=== PATIENT | female | born 1960 | race Caucasian/White ===

== ENCOUNTER → 2020-06-19 10:19 | Outpatient (BNVA) | payer OTHER, SELFPAY | PROVIDERS: Visit Provider Nurse Practitioner Family | DX: M54.9 Dorsalgia, unspecified (principal) | CPT/HCPCS: 81000 ==

== ENCOUNTER 2020-12-05 18:14 | Emergency (ER) | payer OTHER, SELFPAY ==
[2020-12-05 19:27] VITALS: BP 114/73; PULSE 76; RESP 16; TEMP 37.4; O2SAT 98; BMI 24.0
--- NOTE | 2020-12-05 19:54 | XRR_ITS ---
PROCEDURE INFORMATION: Exam: XR Chest Exam date and time: 12/05/2020 7:54 PM Age: 60 years old Clinical indication: Patient HX: Coughing 5 days; Additional info: SOB, covid + TECHNIQUE: Imaging protocol: XR of the chest. Views: 1 view. COMPARISON: No relevant prior studies available. FINDINGS: Lungs: Unremarkable. No consolidation. Pleural spaces: Unremarkable. No pleural effusion. No pneumothorax. Heart/Mediastinum: Unremarkable. No cardiomegaly. Bones/joints: Unremarkable. XR/XR chest 1V portable [id number] IMPRESSION: No acute findings.
[2020-12-05 22:43] VITALS: BP 117/87; PULSE 80; RESP 18; O2SAT 99
--- NOTE | 2020-12-05 22:46 | ED_ITS ---
HPI - SOB/Dyspnea General: Chief Complaint: Shortness of Breath/Dyspnea Stated Complaint: covid +/difficulty breathing Time Seen by Provider: 12/05/20 22:45 History of Present Illness: HPI Narrative: 60-year-old female comes in today for complaints of shortness of breath today. Patient does report some improvement in breathing since coming into the air conditioning of the hospital. Patient reports not having air conditioner at home. Patient does have a h istory of reactive airway. Patient also tested positive for COVID-19 within the last 2 days. Patient appears well. Patient appears no acute distress. Review of Systems General: Reports: 10 or more systems reviewed and unremarkable except in HPI and below Resp: Reports: dyspnea [facility] ED PFSH: Social History (Updated 06/19/20 @ 10:16 by Antoinette Griffin LPN) Smoking and tobacco status: never smoked Physical Exam Const: COMMON NORMALS: no acute distress and patient oriented x3 GENERAL APPEARANCE: cooperative HENMT: COMMON NORMALS: normocephalic, TM's normal bilaterally and Normal external nose present HEAD & SCALP: normal to inspection and normocephalic NOSE: Normal external nose present TYMPANIC MEMBRANE: TM's normal bilaterally MOUTH: Normal oral and palatal mucosa present THROAT: posterior oropharynx normal Eye: GENERAL EYE: appearance normal, both eyes and all related structures Neck/C-Spine: COMMON NORMALS: full ROM Lymph: LYMPHATIC: no lymphadenopathy noted Chest: COMMONS NORMALS: normal inspection of the chest Resp: COMMON NORMALS: normal respiratory effort EFFORT & INSPECTION: Yes able to speak in complete sentences AUSCULTATION: wheezes inspiratory wheezes and diminished lung sounds Cardio: COMMON NORMALS: regular rate and regular rhythm RATE: regular rate RHYTHM: regular rhythm GI: COMMON NORMALS: non-tender Back/Pelvis: COMMON NORMALS: thoracic and lumbar spine normal to inspection Extremity: COMMON NORMALS: normal to inspection Neuro: COMMON NORMALS: patient oriented x3 and moves all extremities Psych: COMMON NORMALS: mental status grossly normal and cooperative Skin: COMMON NORMALS: no rashes or lesions noted GENERAL SKIN EXAM: no rashes or lesions noted Course Vital Signs: Vital signs: Vital Signs Temperature 99.3 F 12/05/20 19:27 Pulse Rate 80 12/05/20 22:43 Respiratory Rate 18 12/05/20 22:43 Blood Pressure 117/87 12/05/20 22:43 Pulse Oximetry 99 12/05/20 22:43 MDM - SOB/Dyspnea MDM Narrative: Medical decision making narrative: 60-year-old female comes in today with complaints of shortness of breath. Patient tested +2 days ago for COVID-19. On exam lungs are decreased with some wheezes. Patient does report some reactive airway disease. Vital signs were normal. Differential diagnosis includes but not limited to pneumonia, COVID-19, reactive airway disease. Patient's x-ray noted no abnormalities. Patient was prescribed albuterol 2 puffs every 4 hours as needed for wheezing or shortness of breath. Patient was given 1 dose of dexamethasone 10 mg p.o. for exacerbation of reactive airway. Patient reported understanding of care plan and need for follow-up or return to the ER. Discharge Plan Discharge Patient Disposition: Home Clinical Impression: COVID-19 Reactive airway disease Qualifiers: Asthma severity: mild Asthma persistence: intermittent Asthma complication type: uncomplicated Qualified Code(s): J45.20 - Mild intermittent asthma, uncomplicated Condition: Stable Prescriptions: New dexamethasone 6 mg tablet 6 mg PO DAILY Qty: 5 RF: 0 Discharge Orders: Discharge ED (Routine); Ordered 12/05/20 Ordered By: Edwar Vega Discharge Diet: Usual diet Discharge Activity: Increase activity as tolerated Patient Instructions: Reactive Airways Disease (ED), Viral Syndrome (ED), Opioid Safety Activity Restrictions/Additional Instructions: Use inhaler 2 puffs every 4 hours as needed for difficulty breathing, persistent coughing, or shortness of breath. Follow-up with primary care as needed. Return to the ER for worsening symptoms or new concerns. Coding Level of Care Code ED [employer] for [employer]
[2020-12-05] MEDS: dexamethasone 4 mg Tablet 10 MG PO (23:47)
== END 2020-12-05 23:55 | disposition home or self-care (01) ==
PROVIDERS: Emergency Provider Nurse Practitioner Family
DX: U07.1 COVID-19 (principal); J45.20 Mild intermittent asthma, uncomplicated
CPT/HCPCS: 71045; 99283; J3535; J8540

== ENCOUNTER 2020-12-11 06:56 | Outpatient (CLI) | payer OTHER, SELFPAY ==
[2020-12-11 07:05] VITALS: BP 109/75; PULSE 63; RESP 16; TEMP 36.4; O2SAT 99; BMI 24.0
[2020-12-11 07:45] VITALS: BP 123/71; PULSE 67; RESP 16; TEMP 396.1; TEMP 745; O2SAT 99
[2020-12-11 08:45] VITALS: BP 95/66; PULSE 65; TEMP 36.6; O2SAT 99
== END 2020-12-11 06:57 | disposition home or self-care (01) ==
PROVIDERS: Visit Provider Family Medicine
DX: U07.1 COVID-19 (principal)
CPT/HCPCS: 96365

== ENCOUNTER → 2022-08-30 08:55 | Outpatient (BNVA) | payer OTHER, SELFPAY | PROVIDERS: PCP Family Medicine; Visit Provider Family Medicine | DX: Z76.89 Persons encountering health services in other specified circumstances (principal) | CPT/HCPCS: 80053; 84443; 85025; 85651 ==

== ENCOUNTER 2022-09-20 15:07 | Outpatient (CLI) | payer OTHER, SELFPAY ==
--- NOTE | 2022-09-20 15:31 | XRR_ITS ---
PROCEDURE INFORMATION: Exam: XR Right Tibia and Fibula Exam date and time: 09/20/2022 3:34 PM Age: 62 years old Clinical indication: Pain; Lower leg; Right; Additional info: Right lower leg pain TECHNIQUE: Imaging protocol: Radiologic exam of the right tibia and fibula. Views: 2 views. COMPARISON: No relevant prior studies available. FINDINGS: Bones/joints: Tibia and fibula are intact. Negative for fracture. Soft tissues: Normal. XR/XR tibia fibula RT 2V [id number] IMPRESSION: No acute findings.
== END 2022-09-20 15:08 | disposition home or self-care (01) ==
PROVIDERS: PCP Family Medicine; Visit Provider Family Medicine
DX: M79.661 Pain in right lower leg (principal)
CPT/HCPCS: 73590